=== PATIENT | female | born 1925 | race Caucasian/White ===

== ENCOUNTER 2016-11-24 17:29 | Emergency (ER) | payer MEDICARE ==
--- NOTE | 2016-11-24 18:33 | ED ---
Head Injury - HPI Summary HPI Summary: 89 F presents head injury and left index finger injury today s/p fall. She states that she was walking backwards and tripped and fell onto her head and index finger. She denies any LOC. She denies any chest pain or SOB at time of incident and states was mechanical fall. Denies any lower extremity injury, neck pain, shoulder pain. Is not on any blood thinners. Denies any nausea or vomiting. has laceration to back of head. - History Of Current Complaint Chief Complaint: EDHeadInjury Stated Complaint: FALL/HEAD INJURY Time Seen by Provider: 11/24/16 18:21 Pain Intensity: 8 - Allergies/Home Medications Allergies/Adverse Reactions: Allergies Allergy/AdvReac Type Severity Reaction Status Date / Time Aspirin Allergy Intermediate Rash Verified 12/16/13 12:29 PMH/Surg Hx/FS Hx/Imm Hx Endocrine/Hematology History: Reports: Hx Anemia - LOW HH Denies: Hx Sickle Cell Disease Cardiovascular History: Reports: Hx Hypertension - ON MEDICATION Denies: Other Cardiovascular Problems/Disorders Respiratory History: Denies: Other Respiratory Problems/Disorders GI History: Denies: Other GI Disorders History: Reports: Hx Kidney Stones - POSSIBLE LT STONE Denies: Other Problems/Disorders Musculoskeletal History: Reports: Hx Arthritis - "ALL OVER AT MY AGE" REPORTS PATIENT Denies: Hx Osteoporosis, Other Musculoskeletal History Sensory History: Reports: Hx Cataracts - NISH SURGERY Denies: Hx Contacts or Glasses, Hx Hearing Aid Opthamlomology History: Reports: Hx Cataracts - NISH SURGERY Denies: Hx Contacts or Glasses Neurological History: Denies: Other Neuro Impairments/Disorders - Cancer History Hx Chemotherapy: No Hx Radiation Therapy: No - Surgical History Surgery Procedure, Year, and Place: CATARACT REMOVAL WITH BILATERAL LENS IMPLANTS, 15 YRS AGO, [facility]. [facility], 1961- , 68. APPENDECTOMY 1961. CYST REMOVAL RIGHT WRIST, 02/2013. 12/11/13. [place] [facility] [place]esthesia Reactions: No Infectious Disease History: No Infectious Disease History: Reports: Hx Shingles - THREE TIMES Denies: Hx Clostridium Difficile, Hx Hepatitis, Hx Human Immunodeficiency Virus (HIV), Hx of Known/Suspected MRSA, Hx Known/Suspected VRE, Hx Known/ Suspected VRSA, History Other Infectious Disease, Traveled Outside the [place] in Last 30 Days - Family History Known Family History: Positive: Hypertension - Social History Alcohol Use: Occasionally Substance Use Type: Reports: None Hx Tobacco Use: No Smoking Status (MU): Never Smoked Tobacco Have You Smoked in the Last Year: No Review of Systems Negative: Fever Negative: Chest Pain Negative: Shortness Of Breath Positive: Myalgia - left index finger pain Positive: Other - laceration scalp Positive: Headache All Other Systems Reviewed And Are Negative: Yes Physical Exam Triage Information Reviewed: Yes Vital Signs On Initial Exam: Initial Vitals Temp Pulse Resp BP Pulse Ox 96.8 F 100 16 217/97 98 11/24/16 17:41 11/24/16 17:41 11/24/16 17:41 11/24/16 17:41 11/24/16 17:41 Vital Signs Reviewed: Yes Appearance: Positive: Well-Appearing Skin: Positive: Warm, Dry, Other - 2 cm laceration to scalp and small abrasions present on scalp Head/Face: Positive: Normal Head/Face Inspection, Other - no step off, raccoon eyes, olsen sign Eyes: Positive: Normal, EOMI, RY, Conjunctiva Clear ENT: Positive: Normal ENT inspection, Pharynx normal, TMs normal Neck: Positive: Nontender Respiratory/Lung Sounds: Positive: Clear to Auscultation, Breath Sounds Present Cardiovascular: Positive: Normal, RRR Musculoskeletal: Positive: Strength/ROM Intact - lower extremities, right arm, and neck, Limited @ - left index finger due to pain Neurological: Positive: Sensory/Motor Intact, Alert, Oriented to Person Place, Time, CN Intact II-III - [place] Coma Scale Best Eye Response: 4 - Spontaneous Best Motor Response: 6 - Obeys Commands Best Verbal Response: 5 - Oriented Coma Scale Total: 15 Procedures - Laceration/Wound Repair 1 Location: head Description: Linear Anesthesia: Local, 1.0% Length, Depth and Shape: 2 cm length Betadine Prep?: No Irrigated w/ Saline (ccs): 100 Laceration/Wound Explored: clean Closure: [place] #__ - 2 Diagnostics - Vital Signs Vital Signs Temp Pulse Resp BP Pulse Ox 11/24/16 18:09 94 96 11/24/16 17:41 96.8 F 100 16 217/97 98 - Laboratory Lab Statement: Any lab studies that have been ordered have been reviewed, and results considered in the medical decision making process. - CT head CT Interpretation: No Acute Changes - IMPRESSION: NO EVIDENCE FOR ACUTE INTRACRANIAL ABNORMALITY. CT Interpretation Completed By: Radiologist finger CT Interpretation: Positive (See Comments) - IMPRESSION: SOFT TISSUE SWELLING, NO FRACTURE IS SEEN. CT Interpretation Completed By: Radiologist Head Injury Course/Dx Course Of Treatment: 89F presents with head injury, scalp laceration and left index finger injury s/p mechanical fall. on exam has 2 cm laceration to scalp that placed 2 jacqueline in. also has small abrasion on scalp. normal neuro exam. CT head normal. normal left finger index. patient understands and agrees with plan - Diagnoses Differential Diagnosis/HQI/PQRI: Cerebral Contusion, Concussion Without LOC, Intracranial Bleed, Laceration Provider Diagnoses: Head injury, Injury of left index finger Discharge - Discharge Plan Condition: Good Disposition: HOME Patient Education Materials: Head Injury (ED) Referrals: Alyse Jose MD [Primary Care Provider] - Additional Instructions: Take Tylenol ibuprofen for pain as needed every 6 hours Do not scrub staple area Return to ED in 7-10 days to have jacqueline removed Follow up with primary within [address] on finger Return to ED if develop signs of infection such as fever, spreading redness, or pus, if starting vomit or develop severe headache or any new or worsening symptoms
--- NOTE | 2016-11-24 18:51 | RAD ---
INDICATION: Left index finger injury. TECHNIQUE: 3 views of the left index finger were obtained. FINDINGS: There is soft tissue swelling around the distal phalanx and at the level of the proximal interphalangeal joint. The distal phalanx is angulated slightly medial relative to the middle phalanx. No fracture is seen. 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 IMPRESSION: SOFT TISSUE SWELLING, NO FRACTURE IS SEEN.
--- NOTE | 2016-11-24 18:57 | RAD ---
INDICATION: Head injury. COMPARISON: There are no prior studies available for comparison. TECHNIQUE: Contiguous axial sections of the brain were obtained from the skull base to the vertex without contrast. FINDINGS: The ventricles, cisterns and sulci are enlarged consistent with diffuse atrophy. No significant focal abnormality or mass effect is seen. There is no evidence for hemorrhage. Soft tissue swelling is noted in the scalp posterior to the occipital bones. No fracture is seen. The visualized portion of the paranasal sinuses and mastoid air cells appear clear. IMPRESSION: NO EVIDENCE FOR ACUTE INTRACRANIAL ABNORMALITY.
[2016-11-24] MEDS ORDERED: Acetaminophen TAB* 325 MG PO ONE (19:32)
[2016-11-24 20:03] VITALS: BP 207/101
== END 2016-11-24 20:01 | disposition home or self-care (01) ==
LOC: ED 17:29
DX: S09.90XA Unspecified injury of head, initial encounter (principal); S01.01XA Laceration without foreign body of scalp, initial encounter; S69.92XA Unspecified injury of left wrist, hand and finger(s), initial encounter; W19.XXXA Unspecified fall, initial encounter; Y93.89 Activity, other specified; Y92.9 Unspecified place or not applicable; M79.645 Pain in left finger(s)
CPT/HCPCS: 12001; 70450; 73140; 99282; A9270-GY